=== PATIENT | male | born 1985 | race Caucasian/White ===

== ENCOUNTER 2022-03-03 10:16 | Outpatient (REF) | payer BC, SELFPAY | END 2022-03-03 10:17 | disposition home or self-care (01) | LOC: NCHCN 10:16 | PROVIDERS: PCP Nurse Practitioner Family; Visit Provider Nurse Practitioner Family ==

== ENCOUNTER 2022-03-16 06:57 | Outpatient (REF) | payer OTHER, SELFPAY ==
[2022-03-16 07:23] LABS: ALT 36 U/L (16-63); AST 13 U/L (15-37); Albumin 4.3 g/dL (3.4-5.0); Alkaline Phosphatase 71 U/L (46-116); Anion Gap 9.3 mmol/L (3-11); BUN 15 mg/dL (7-18); Bilirubin, Total 0.3 mg/dL (0.2-1.0); CO2 30.7 mmol/L (21.0-32.0); CREATININE 1.2 mg/dL (0.70-1.30); Calculated LDL 101 mg/dL (<100); Chloride 102 mmol/L (98-107); Cholesterol 195 mg/dL (<200); Glucose 107 mg/dL (74-106); HDL Cholesterol 33 mg/dL (40-60); Potassium 3.8 mmol/L (3.5-5.1); Sodium 142 mmol/L (136-145); Total Protein 7.6 g/dL (6.4-8.2); Triglyceride 305 mg/dL (<150)
[2022-03-19 10:50] LABS: HIV-1/2 Ag & Ab Screen Negative (Negative)
[2022-03-19 11:15] LABS: Hepatitis C Ab w Rflx HCV PCR Negative (Negative)
== END 2022-03-16 06:58 | disposition home or self-care (01) ==
LOC: LBO 06:57
PROVIDERS: PCP Nurse Practitioner Family; Visit Provider Nurse Practitioner Family
DX: I10 Essential (primary) hypertension (principal); Z13.1 Encounter for screening for diabetes mellitus; Z13.220 Encounter for screening for lipoid disorders; Z11.4 Encounter for screening for human immunodeficiency virus [HIV]; Z11.59 Encounter for screening for other viral diseases
CPT/HCPCS: 80053; 80061; 86803; 87389

== ENCOUNTER 2022-03-20 09:09 | Outpatient (CLI) | payer OTHER, SELFPAY ==
--- NOTE | 2022-03-20 08:45 | DI.RAD_ITS ---
Exam(s) XR SHOULDER RT COMPLETE 2+V EXAM: XR SHOULDER RT COMPLETE 2+V CLINICAL HISTORY: right shoulder pain. TECHNIQUE: 2D digital imaging was performed. COMPARISON: CR RIGHT SHOULDER COMPLETE from 10/26/2013 FINDINGS: Two views: No evidence of fracture or dislocation of glenohumeral joint. No abnormal soft tissue calcifications . No degenerative changes. Coracoid process is intact. Clavicle appears intact. No os acromiale. IMPRESSION: No significant radiographic findings on these two views of the right shoulder. DATA REPOSITORY: RADIATION DOSE DELIVERED:
== END 2022-03-20 09:10 | disposition home or self-care (01) ==
LOC: DIORS 09:10
PROVIDERS: PCP Nurse Practitioner Family; Referring Provider Nurse Practitioner Family; Visit Provider Student in an Organized Health Care Education/Training Program
DX: M25.511 Pain in right shoulder (principal)
CPT/HCPCS: 73030

== ENCOUNTER 2022-11-16 10:55 | Day surgery (SDC) | payer BC, SELFPAY ==
[2022-11-16] VITALS (11 sets, daily range): BP systolic 117–132; BP diastolic 65–96; PULSE 61–76; RESP 7–25; TEMP 36.4–36.9; O2SAT 81–98; BMI 30.5
[2022-11-16] MEDS: Lactated Ringers 1,000 ML 30 ML IV (12:22)
--- NOTE | 2022-11-16 13:07 | W.ANESPRE ---
General Info Date of Service Date Performed: 11/16/22 Height: 5 ft 10 in Weight: 96.615 kg Body Mass Index (BMI): 30.5 Surgical Procedure: Operation Date: 11/16/22 12:40 Proposed Procedure Side Surgeon p Shoulder Arthroscopy w/Extensive Debridement, Biceps Tenodesis,Subacromial Decompression,Distal Clavicel Excision Right Pablo Mayo MD Meds Allergies and Home Medications Allergies Allergy/AdvReac Type Severity Reaction Status Date / Time No Known Allergies Allergy Verified 11/15/22 14:10 Home Medication Medication Instructions Recorded cetirizine 10 mg tablet 10 mg PO DAILY PRN 10/04/21 ciclopirox 0.77 % topical cream 1 applic topical BID #30 grams 10/04/21 pantoprazole 40 mg tablet,delayed 40 mg PO DAILY #90 tabs 02/28/22 release sildenafil 100 mg tablet (Viagra) 50 mg PO ONCE PRN sexual activity 03/21/22 #10 tab-caps diltiazem HCl 360 mg capsule,24 See Rx Instructions .Route 10/02/22 hr,extended release .COMPLEX #90 caps lisinopril 20 See Rx Instructions .Route 10/02/22 mg-hydrochlorothiazide 25 mg tablet .COMPLEX #90 tabs aspirin 81 mg tablet,delayed 81 mg PO DAILY prevent blood clot 11/16/22 release 7 days #7 tabs naproxen 250 mg tablet 250 - 500 mg PO BID PRN #40 tabs 11/16/22 oxycodone 5 mg tablet 5 - 10 mg PO Q4H PRN moderate to 11/16/22 severe pain #18 tabs Current Visit Medications: Current Medications Generic Name Dose Route Start Last Admin Trade Name Freq PRN Reason Stop Dose Admin Ephedrine Sulfate 0 mg 11/16/22 13:00 Ephedrine 25 Mg/5 Ml Syringe IVP DIRECTED PRN Fentanyl 0 mcg 11/16/22 13:00 Fentanyl 100 Mcg/2 Ml Vial IVP DIRECTED PRN Hydromorphone HCl 0 mg 11/16/22 13:00 Hydromorphone 2 Mg/Ml Syr IVP DIRECTED PRN Ringer's Solution 1,000 mls @ 30 mls/hr 11/16/22 06:00 11/16/22 12:22 IV 11/16/22 18:00 30 mls/hr INFUSION SUSANA Administration Cefazolin Sodium/Dextrose 2 gm in 50 mls @ 100 mls/hr 11/16/22 06:00 Ancef Duplex IVPB 11/16/22 23:59 PREOP SUSANA IV Miscellaneous Supplies 1 each 11/16/22 06:00 Iv Access IV 11/16/22 23:59 DIRECTED SUSANA Naloxone HCl 0 mg 11/16/22 13:00 Naloxone 0.4 Mg/Ml Vial IVP PRN PRN Oxycodone HCl 0 mg 11/16/22 07:24 Oxycodone 5 Mg Tab PO Q3H PRN PRN Pain Sodium Chloride 0 ml 11/16/22 06:00 Normal Saline Flush 10 Ml Syr IV 11/16/22 23:59 PRN PRN Sodium Chloride 0 ml 11/16/22 06:00 Normal Saline 10 Ml Vial IJ 11/16/22 23:59 DIRECTED PRN Sterile Water 0 ml 11/16/22 06:00 Water,Injection,Sterile 10 Ml Vial IJ 11/16/22 23:59 DIRECTED PRN PFSH Active Problems Active Problems: Problem Status Onset Code Carpal tunnel syndrome of left wrist G56.02 Carpal tunnel syndrome of right wrist G56.01 Erectile dysfunction N52.9 IFG (impaired fasting glucose) R73.01 Hyperlipidemia, unspecified E78.5 Cervical radiculopathy M54.12 Impingement syndrome of right shoulder M75.41 Bursitis of right shoulder M75.51 Pain in right acromioclavicular joint M25.511 SLAP lesion of right shoulder S43.431A Post-COVID syndrome U09.9 Tinea pedis B35.3 Overweight (BMI 25.0-29.9) Gastroesophageal reflux disease K21.9 Essential hypertension I10 Migraine 12/17/13 G43.909 Medical History Medical History Asthma (12/17/13) Incomplete rotator cuff tear or rupture of right shoulder, not specified as traumatic Lyme disease GEENA (obstructive sleep apnea) (2008) Sleep Study 02/11/09 SARS-CoV-2 positive (~11/2021) Surgical History Surgical History History of vasectomy (2018) JORDY Delgado Tobacco Smoking/Tobacco Use Status: Former Tobacco Use Alcohol Alcohol Intake: current Alcohol intake frequency: a few times a month Substance Use Substance use: Occasionally Substance use type: marijuana Vital Signs and Lab Results Vital Signs Most Recent Vital Signs in EMR: Most Recent Vital Signs Temp Pulse Resp BP Pulse Ox 36.4 C L 76 16 132/96 H 98 11/16/22 11:32 11/16/22 11:32 11/16/22 11:32 11/16/22 11:32 11/16/22 11:32 Lab Results Blood Type / Crossmatch: No Data to Display Complete Blood Count: No Data to Display Complete Metabolic Panel: No Data to Display Liver Function Panel: No Data to Display Coagulation Panel: No Data to Display Cardiac Panel: No Data to Display Arterial Blood Gas: No Data to Display Venous Blood Gas: No Data to Display Pancreas Panel: No Data to Display Thyroid Panel: No Data to Display Infectious Disease: No Data to Display Blood Cultures: No Data to Display Toxicology Panel: No Data to Display Anesthesia Assessment and Plan Anesthesia History Personal History: No History of Anesthesia Complications Family History: No Family History of Anesthesia Complications Exercise Tolerance Exercise Tolerance: Metabolic Equivalents>4 Cardiac & Pulmonary Exam Cardiac Exam: Normal S1/S2 Heart Sounds Pulmonary Exam: Clear Bilateral Breath Sounds Implantable Cardiac Device Does patient have a Pacemaker or an ICD?: No Airway Exam Known Difficult Airway: No Mallampati Class: 3 Mouth Opening: Normal (> 3cm) Thyromental Distance: Greater than 3 cm Facial Hair: Full Cleaning Neck Range of Motion: Limited ROM Neck Circumference: Thick Teeth Condition: Generalized Poor Dentition ASA Classification ASA Score: ASA 2 Emergency Case?: No NPO Status NPO Status: NPO Clears >2 hours, Solids >8 hours Anesthesia Plan Resuscitation Status: Full Code Anesthesia Technique: General Anesthesia Airway Planned: Endotracheal Tube Pain Management: Surgeon and patient request nerve block Monitors Used: Standard Monitors Preoperative Comments:: 36 yo male for shoulder scope and clavicle debridement. Sig PMHx: cervical radiculopathy (frequent numbness in fingers, mostly left), GERD (pantoprazole), HTN (diltiazem, lisinopril, HCTZ), migraine, asthma (as a child), GEENA (no CPAP, former smoker, occ EtOH/cannabis. Discussed risks, benefits, alternatives GA with interscalene +/- superficial cervical plexus.
[2022-11-16] MEDS: ceFAZolin 2 GM/50 ML BAG IVPB (14:20)
[2022-11-16] MEDS: Bupivacaine 0.5% Pres-Free W/EPI 10 ML VIAL (15:18)
--- NOTE | 2022-11-16 15:23 | W.ANESNERVE ---
Nerve Block Single Injection Procedure Date and Time Date Performed: 11/16/22 Procedure Start: 13:48 Location Where Procedure Performed Procedure Location: Day Surgery Unit Reason Performed: Postoperative Analgesia Requesting Provider: Pablo Mayo Timeout Performed Timeout Performed: Yes Monitoring Used ECG, Blood Pressure, SpO2 and See EMR for corresponding vital signs Sterility Sterility: Hand Hygiene, Surgical Cap, Surgical Mask, Sterile Gloves, Eye Protection and Chlorhexidine Sedation Given During Procedure Sedation Given (Indicate Dose Given): Versed IV Dose:: 2mg Patient Mental Status Patient Mental Status: Sedate with meaningful communication Nerve Block 1st Nerve Block: Laterality: Right Block Type: Interscalene Ultrasound Image Saved?: Yes Needle / Catheter Used: 80mm SonoPlex II Local Anesthetic Bolus (Indicate Dose Given): Lidocaine used for local infiltration of skin, Injected in 3-5ml increments after negative blood aspiration, Bupivacaine 0.5% Dose:: 15mL and Exparel Dose:: 10mL Additives (Indicate Dose Given): None Ultrasound: Not Used Nerve Stimulator: Not Used Paresthesia: None Procedure Tolerated: No Complications Procedure Outcome: Successful Performed By: Victoria Leyva
[2022-11-16] MEDS: EPINEPHrine 30 MG/30 ML VIAL (15:34)
--- NOTE | 2022-11-16 15:45 | W.PM.DSUDISC ---
Date of service: 11/16/22 Time of Service: 16:00 Discharge Plan Disposition Patient Disposition: Home Discharge Details Attending Provider: Pablo Mayo Primary Care Provider: Esther Santa Home Meds and New Rx's Prescriptions: New aspirin 81 mg tablet,delayed release (DR/EC) 81 mg PO DAILY 7 Days Qty: 7 0RF naproxen 250 mg tablet 250 - 500 mg PO BID PRNQty: 40 0RF Rx Instructions: take with a meal oxycodone 5 mg tablet 5 - 10 mg PO Q4H MDD 30 mg PRN (Reason: moderate to severe pain) Qty: 18 0RF Continued cetirizine 10 mg tablet 10 mg PO DAILY PRN ciclopirox 0.77 % cream 1 applic topical BID Qty: 30 1RF sildenafil [Viagra] 100 mg tablet 50 mg PO ONCE PRN (Reason: sexual activity) Qty: 10 0RF Label Comments: pt states he never filled script Rx Instructions: Take 30 minutes to 4 hours before activity pantoprazole 40 mg tablet,delayed release (DR/EC) 40 mg PO DAILY Qty: 90 3RF Rx Instructions: Take 40 mg once daily in the morning at least 30 minutes before first meal lisinopril-hydrochlorothiazide 20-25 mg tablet See Rx Instructions .ROUTE .COMPLEX Qty: 90 1RF Dose Instruction: TAKE ONE TABLET BY MOUTH ONCE DAILY Rx Instructions: TAKE ONE TABLET BY MOUTH ONCE DAILY diltiazem HCl 360 mg capsule,extended release 24 hr See Rx Instructions .ROUTE .COMPLEX Qty: 90 1RF Dose Instruction: TAKE ONE CAPSULE BY MOUTH DAILY Rx Instructions: TAKE ONE CAPSULE BY MOUTH DAILY Discharge Instructions Additional Instructions: Surgery: Right shoulder arthroscopy with biceps tenodesis, extensive debridement, subacromial decompression, and distal clavicle excision Activity: You should gradually increase range of motion motion and use of your shoulder. You may use your shoulder for all regular activities while protecting biceps repair. Avoid any weighted elbow flexion or resisted supination for 6-8 weeks. No heavy lifting, reaching overhead, or lifting away from body for approximately 2-3 months. You may use the sling whenever you are out of the house for a few weeks. At home it is best to remove the sling and rest the arm on a pillow at your side or support the operative side with your other hand. A physical therapy prescription will be sent electronically to start in about 3 weeks. Prescriptions: Aspirin 81 mg take 1 daily to prevent a blood clot for 7 days Naproxen 250 mg take 1-2 every 12 hours with a meal as needed for moderate pain Oxycodone 5 mg take 1-2 every 4-6 hours as needed for severe pain You may use [id number] Tylenol (acetaminophen) as needed for mild pain. These pain medications may be taken all at once or in different combinations as needed. Also, recommend Colace (docusate) as a stool softener as surgery and pain medicine cause constipation. You may try [id number] diphenhydramine (Benadryl) 25-50 mg nightly as a sleep aid Dressings: Remove shoulder bandage after 3 days. Leave the sticky Steri-Strips in place until they fall off or remove them after you shower. Cover the incisions with Band-Aids or leave them open to air. You may shower after 5 days. Follow-up: 10-[address] Mayo You may take off the leg compression stockings this evening at home. You may also leave them on a few days longer if you have a history of leg swelling or edema. Let us know right away if you develop any redness, drainage, fevers, chest pain, or trouble breathing. Do not drink alcohol or drive for at least 24 hours after anesthesia. Please call the office during business hours with any questions or concerns. Discharge Orders Discharge Orders: Discharge Order (Routine); Ordered 11/16/22 Ordered By: Pablo Mayo DS: Diagnosis Discharge Diagnosis (1) SLAP lesion of right shoulder: Status: Acute
--- NOTE | 2022-11-16 15:51 | W.PM.OP ---
Date of service: 11/16/22 Time of Service: 15:51 Operative Note Operative Note DATE OF PROCEDURE: 11/16/22 PRE-OP DIAGNOSIS: Right: 1. SLAP tear 2. AC joint pain 3. Bursitis POST-OP DIAGNOSIS: same PROCEDURE: Right: 1. Arthroscopic biceps tenodesis, CPT# 48328. This involved arthroscopically suturing and reattaching the long head of the biceps tendon to the proximal humerus at the superior margin of the bicipital groove with a screw at the correct tension. 2. Extensive debridement, CPT# 75982. This involved using arthroscopic hand instruments, power instruments, and radiofrequency instruments to release the long head of the biceps tendon and debride areas of biceps anchor, anterior, and posterior superior labral tearing, moderate localized anterior capsulitis and partial articular supraspinatus tearing working within the glenohumeral joint anteriorly, superiorly and posteriorly. 3. Subacromial decompression with partial acromioplasty, CPT# 78321. This involved using arthroscopic power instruments and a radiofrequency wand to complete a bursectomy and smooth the undersurface of the acromion. 4. Arthroscopic distal clavicle excision, CPT# 52900. This involved arthroscopically exposing the underside of the acromioclavicular joint, smoothing out bone spurs, and removing a few millimeters of the distal clavicle so there was no bone left engaging the acromion. The assistant strength coach was medically required in order to help assist in techniques above, which require positioning the arm, holding the arthroscope, and manipulating multiple instruments and sutures at the same time. This cannot be done without the help of an experienced assistant strength coach. SURGEON: Pablo Mayo SCIENCE INTERN: Sandra Sheriff ANESTHESIA TYPE: Local By Surgeon, General LMA/ETT and Primary Nerve Block Refer to Anesthesia Record ESTIMATED BLOOD LOSS: 10 PATHOLOGY: none sent COMPLICATIONS: None Patient was transported to: PACU Patient's condition: stable Implants: Arthrex: 4.75mm SwiveLocks x 1 Indications: The patient was diagnosed with the above conditions and appropriately indicated for surgical intervention. Please see complete medical record for details. Findings: Exam under anesthesia: Full range of motion, no instability Glenohumeral joint: Probable [place] variant deficient anterior superior labrum with instead cordlike structure combined with [facility] L with moderate synovitis. Unstable biceps anchor SLAP tear. Intact biceps tendon. Intact subscapularis. Mild thickness moderately sized partial articular supraspinatus tearing with no significant footprint involvement. Intact articular cartilage throughout. Subacromial space: Moderate bursitis. A few small undersurface acromial bone prominences especially nearing the clavicle. Intact bursal rotator cuff with mild but diffuse fraying. Procedure Description: In the operating room, general anesthesia was induced. Bilateral shoulders were examined. The patient was positioned in the beachchair position. All bony prominences were well-padded. Preoperative antibiotics were administered. The shoulder was prepped and draped in the usual sterile fashion. The correct patient, procedure, and side of the procedure were all verified prior to incision. Starting through the posterior portal a standard complete diagnostic arthroscopy was performed of the glenohumeral joint including inspection of the long head of the biceps, anterior and superior labrum, subscapularis tendon, supraspinatus and infraspinatus tendons, and axillary recess. The glenoid and humeral head cartilage as well as the posterior labrum were inspected from an anterior viewing portal. Significant findings and interventions noted above. Particularly anterior, superior, and posterior superior labrum as well as partial articular supraspinatus tear was debrided of fraying and flaps of tissue to a smooth margin. An all-arthroscopic suprapectoral biceps tenodesis was performed through an anterior portal using a Loop N Tack method with a SutureTape FiberLink cinched around and through the tendon. The biceps was tenotomized from the labrum and fixated with a suture anchor at the superior margin of the bicipital groove. The knotless repair suture was then passed around the biceps stump and shuttled through the suture anchor adding additional fixation to the repair given young age and isolated tenodesis. The biceps was stable on testing. Starting through the posterior portal, the arthroscope was directed into the subacromial space. A lateral 50 yard line lateral portal was omitted. A combination of power instruments and a radiofrequency ablator were used to debride bursitis anteriorly, posteriorly, and laterally as well as expose and smooth bone spurring on the undersurface of the acromion. The coracoacromial ligament was preserved. The bursectomy was completed and the rotator cuff was thoroughly inspected with findings noted above. The anterior portal was redirected towards the undersurface of the AC joint. A shaver and electrocautery device were used to clear soft tissue from the undersurface of the AC joint. The distalmost few millimeters of the distal clavicle and a couple millimeters of the adjacent acromion were then removed and smoothed. Care was taken to ensure that proper amount of bone was removed and there was no engaging bone left behind. The shoulder was drained of arthroscopic fluid. All portal sites were copiously irrigated. These incisions were closed using 3-0 Monocryl in a buried fashion and then covered with Mastisol, Steri-Strips, Xeroform, dry gauze, and ABDs. The dressings were covered and secured with Medipore tape. The operative extremity was placed into a sling for immobilization. The patient awoke from anesthesia without complication and was transferred to the recovery room in a stable condition.
--- NOTE | 2022-11-16 17:07 | W.ANESPOSTOP ---
Postoperative Evaluation Date, Time and Location Date Performed: 11/16/22 Time Performed: 17:08 Patient Location: Day Surgery Unit Vital Signs Most Recent Imported Vital Signs: Most Recent Vital Signs Temp Pulse Resp BP Pulse Ox 36.4 C L 64 16 123/85 94 11/16/22 16:53 11/16/22 16:53 11/16/22 16:53 11/16/22 16:53 11/16/22 16:53 Pain Score Most Recent Pain Score: Most Recent Pain Score Pain Level 0 11/16/22 16:53 Assessment Mental Status: Awake (Alert & Oriented to Patient Baseline) Airway and Respiratory Function: Patent airway with normal (patient baseline) respiratory exam Cardiovascular Function: Hemodynamically Stable Hydration Status: Adequately Hydrated Nausea & Vomiting: No Nausea or Vomiting Pain: Pt. Denies Any Pain Peripheral Nerve Block: Regional nerve block not resolved at time of post operative discharge
== END 2022-11-16 17:45 | disposition home or self-care (01) ==
PROVIDERS: PCP Nurse Practitioner Family; Visit Provider Student in an Organized Health Care Education/Training Program
PROC: (CPT 29805; principal; 2022-11-16 12:30)
DX: M75.51 Bursitis of right shoulder (principal); M75.41 Impingement syndrome of right shoulder; M75.111 Incomplete rotator cuff tear or rupture of right shoulder, not specified as traumatic; M24.111 Other articular cartilage disorders, right shoulder
CPT/HCPCS: 29828; 29826; 29824; 29823; J0690; J1100; J2250; J2370; J2405; J2704

== ENCOUNTER 2023-07-09 06:04 | Outpatient (CLI) | payer OTHER, SELFPAY ==
[2023-07-09 06:21] LABS: Abs Immature Grans 0.01 10^3/uL (0.0-0.06); Absolute Basophil Count 0.05 10^3/uL (0.0-0.2); Absolute Eosinophil Count 0.17 10^3/uL (0.0-0.7); Absolute Lymphocyte Count 2.11 10^3/uL (1.2-3.4); Absolute Monocyte Count 0.66 10^3/uL (0.1-0.8); Absolute Neutrophil Count 2.96 10^3/uL (1.2-6.7); Basophils % 0.8; Eosinophils % 2.9; HCT 40.7 % (40.0-50.0); HGB 13.7 g/dL (13.5-17.5); Immature Grans % 0.2; Lymphocytes % 35.4; MCH 30.9 pg (27.0-33.0); MCHC 33.7 % (32.0-36.0); MCV 92 fL (80-95); MPV 11.4 fL (8.0-11.0); Monocytes % 11.1; Neutrophils % 49.6; Platelet Count 307 10^3/uL (130-400); RBC 4.44 10^6/uL (4.36-5.78); RDW 12.7 % (11.8-14.1); WBC 5.96 10^3/uL (4.4-10.8)
[2023-07-09 06:37] LABS: ALT 26 U/L (16-63); Albumin 4.1 g/dL (3.4-5.0); Alkaline Phosphatase 77 U/L (46-116); Anion Gap 7.5 mmol/L (3-11); BUN 12 mg/dL (7-18); Bilirubin, Total 0.3 mg/dL (0.2-1.0); CO2 31.5 mmol/L (21.0-32.0); CREATININE 1.1 mg/dL (0.70-1.30); Calcium 9.6 mg/dL (8.5-10.1); Chloride 103 mmol/L (98-107); Estimated GFR 87.57 (mL/min/1.73m2); Glucose 118 mg/dL (74-106); Potassium 3.7 mmol/L (3.5-5.1); Sodium 142 mmol/L (136-145); TSH (W/Ref FT4) 1.94 uIU/mL (0.36-3.74); Total Protein 7.6 g/dL (6.4-8.2)
[2023-07-09 06:50] LABS: AST 10 U/L (15-37); Calculated LDL 81 mg/dL (<100); Cholesterol 185 mg/dL (<200); HDL Cholesterol 33 mg/dL (40-60); Triglyceride 357 mg/dL (<150)
== END 2023-07-09 06:05 | disposition home or self-care (01) ==
LOC: LBO 06:05
PROVIDERS: PCP Nurse Practitioner Family; Visit Provider Nurse Practitioner Family
DX: I10 Essential (primary) hypertension (principal); R53.83 Other fatigue; E03.9 Hypothyroidism, unspecified; E78.5 Hyperlipidemia, unspecified
CPT/HCPCS: 80053; 80061; 84443; 85025

== ENCOUNTER 2024-03-21 12:50 | Emergency (ER) | payer OTHER, SELFPAY ==
[2024-03-21 12:54] VITALS: BP 154/92; PULSE 82; RESP 15; TEMP 36.6; O2SAT 97
[2024-03-21 12:57] VITALS: BP 154/92; PULSE 82; RESP 15; TEMP 36.6; O2SAT 97
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
== END 2024-03-21 13:25 | disposition home or self-care (01) ==
PROVIDERS: Emergency Provider Emergency Medicine; PCP Family Medicine
DX: R68.84 Jaw pain (principal); K08.89 Other specified disorders of teeth and supporting structures
CPT/HCPCS: 99283

== ENCOUNTER → 2024-04-28 01:43 | Outpatient (CLI) | payer OTHER, SELFPAY ==
--- NOTE | 2024-04-28 | DI.MRI_ITS ---
Exam(s) MR LOWER JOINT LT WO EXAM: MR LOWER JOINT LT WO CLINICAL HISTORY: ANKLE INSTABILITY L, M25.372 TECHNIQUE: Multiplanar multisequence MRI was performed without intravenous contrast. COMPARISON: CR XR ANKLE MIN 3 VIEWS LEFT (GENERIC) from 03/25/2024 FINDINGS: Findings somewhat limited by motion. BONES/JOINTS: Edema in the lateral talar dome. No visible osteochondral defect however the resolutio n is limited on this exam.. No suspicious bone lesions identified. The ankle mortise is maintained . A posterior tibial talocalcaneal joint effusion is present. There is spurring at the posterior ta shane. Mild degenerative changes at the medial and lateral tibiotalar joints mild spurring. LIGAMENTS: The tibiofibular and calcaneofibular ligaments are intact. The talofibular ligaments are i ntact. The deltoid ligament is not well visualized. The syndesmosis is unremarkable. Sinus tarsi is normal. MUSCULOTENDINOUS STRUCTURES: Achilles tendon: Unremarkable. Plantar fascia: Unremarkable. Anterior Extensor tendons: Unremarkable. Posterior Tibialis: Unremarkable. Flexor Digitorum longus: Unremarkable. Flexor Hallucis longus: Unremarkable. Peroneus longus: Unremarkable. Peroneus brevis:Tendon is split posterior to the lateral malleolus and shows edema. Some fluid in the tendon sheath. SOFT TISSUES: Unremarkable. IMPRESSION: Edema in the lateral talar dome and lateral malleolus. No visible osteochondral defect. Split peroneus brevis tendon with edema and surrounding fluid. DATA REPOSITORY:
== END ==
PROVIDERS: PCP Family Medicine; Visit Provider Physician Assistant
DX: M25.372 Other instability, left ankle (principal)
CPT/HCPCS: 73721

== ENCOUNTER 2024-12-07 08:52 | Emergency (ER) | payer OTHER, SELFPAY ==
[2024-12-07] VITALS (7 sets, daily range): BP systolic 121–156; BP diastolic 75–103; PULSE 70–88; RESP 16–18; TEMP 36.9; O2SAT 93–97
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
--- NOTE | 2024-12-07 09:45 | DI.RAD_ITS ---
Exam(s) XR CHEST 2V PA LATERAL EXAM: XR CHEST 2V PA LATERAL CLINICAL HISTORY: cough TECHNIQUE: 2D digital imaging was performed. Two views. COMPARISON: No exams were available for comparison FINDINGS: HEART: Normal size. Aorta: Not dilated. PULMONARY VASCULATURE: Normal. MEDIASTINUM: Unremarkable. LUNGS: Clear. PLEURAL SPACE: No pleural effusion or pneumothorax. BONE:Unremarkable for age. SOFT TISSUES: Unremarkable. IMPRESSION: No acute abnormality. DATA REPOSITORY: RADIATION DOSE DELIVERED:
[2024-12-07 09:46] LABS: COVID-19 PCR Negative (Negative); Influenza A PCR Positive (Negative); Influenza B PCR Negative (Negative); RSV PCR Negative (Negative)
[2024-12-07 09:49] LABS: Source Nasopharynx
[2024-12-07] MEDS: Ibuprofen 400 MG TAB PO (10:13)
== END 2024-12-07 10:26 | disposition home or self-care (01) ==
PROVIDERS: Emergency Provider Student in an Organized Health Care Education/Training Program; PCP Family Medicine
DX: J10.1 Influenza due to other identified influenza virus with other respiratory manifestations (principal); I10 Essential (primary) hypertension; E78.5 Hyperlipidemia, unspecified; Z87.891 Personal history of nicotine dependence
CPT/HCPCS: 87426; 87637; 99284; 71046

== ENCOUNTER 2025-03-11 06:17 | Outpatient (CLI) | payer OTHER, SELFPAY ==
[2025-03-11 07:12] LABS: ALT 42 U/L (16-63); AST 18 U/L (15-37); Alkaline Phosphatase 72 U/L (46-116); BUN 14 mg/dL (7-18); Bilirubin, Total 0.3 mg/dL (0.2-1.0); CREATININE 1.2 mg/dL (0.70-1.30); Calcium 9.7 mg/dL (8.5-10.1); Chloride 103 mmol/L (98-107); Estimated GFR 77.92 (mL/min/1.73m2); Glucose 112 mg/dL (74-106); Potassium 3.7 mmol/L (3.5-5.1); Sodium 141 mmol/L (136-145); Total Protein 7.8 g/dL (6.4-8.2)
[2025-03-11 07:49] LABS: Calculated LDL 99 mg/dL (<100); Cholesterol 207 mg/dL (<200); HDL Cholesterol 32 mg/dL (>or=40); Triglyceride 382 mg/dL (<150)
== END 2025-03-11 06:18 | disposition home or self-care (01) ==
PROVIDERS: PCP Family Medicine; Visit Provider Family Medicine
DX: I10 Essential (primary) hypertension (principal)
CPT/HCPCS: 80053; 80061

== ENCOUNTER 2025-08-25 12:40 | Outpatient (CLI) | payer OTHER, SELFPAY ==
--- NOTE | 2025-08-25 11:45 | DI.RAD_ITS ---
Exam(s) XR CHEST 2V PA LATERAL EXAM: XR CHEST 2V PA LATERAL CLINICAL HISTORY: RLL rales, wheezing J18.9 TECHNIQUE: 2D digital imaging was performed of the chest. Two images were obtained. PA and lateral views were obtained. COMPARISON: CR XR CHEST 2V PA LATERAL from 12/07/2024 FINDINGS: MEDIASTINUM: Normal. HEART: Normal. PULMONARY VASCULATURE: Normal. LUNGS: Clear. PLEURAL SPACE: No pleural effusion or pneumothorax. BONE:Within normal limits for the patient's age. OTHER FINDINGS:Normal. IMPRESSION: No acute pulmonary findings. DATA REPOSITORY: RADIATION DOSE DELIVERED:
== END 2025-08-25 13:00 ==
LOC: DI 12:41
PROVIDERS: PCP Family Medicine; Visit Provider Family Medicine
DX: J18.9 Pneumonia, unspecified organism (principal)
CPT/HCPCS: 71046